=== PATIENT | female | born 1945 | race Caucasian/White ===

== ENCOUNTER 2018-03-31 08:42 | Day surgery (SDC) ==
[2018-03-31] MEDS: TETRACAINE 0.5% UNIT-DOSE OP PRN ×2 (10:00→10:20)
[2018-03-31] MEDS: BETADINE OPTH PREP OP PRN ×2 (10:00→10:20)
[2018-03-31] MEDS: CYCLOGYL 2% OPTH OP PRN ×3 (10:01→10:11)
[2018-03-31] MEDS ORDERED: DEX-MOXI-KETOR OPTH INJ 1/0.5/0.4 MG/ML IO ONE (10:08)
[2018-03-31] MEDS ORDERED: LIDOCAINE 1% 20 ML MDV ID STA (10:08)
[2018-03-31] MEDS ORDERED: BRIMONIDINE TARTRATE 0.2% OPTH SOL OP PRN (10:08)
[2018-03-31] MEDS ORDERED: BSS WITH EPINEPHRINE OP ONE (10:08)
[2018-03-31] MEDS ORDERED: LIDOCAINE 1%/PHENYLEPHRINE 1.5% BSS (SURGERY) INTRAOCULA ONE (10:08)
[2018-03-31] MEDS ORDERED: ZOFRAN 4 MG/2 ML IVP ONE (10:08)
[2018-03-31 10:15] VITALS: TEMP 97.7
[2018-03-31] MEDS ORDERED: ZOFRAN 4 MG/2 ML ONE (10:32)
[2018-03-31] MEDS ORDERED: SUBLIMAZE ONE (10:32)
[2018-03-31] MEDS ORDERED: VERSED ONE (10:32)
[2018-03-31 17:03] VITALS: BP 121/68
== END 2018-03-31 11:20 | disposition home or self-care (01) ==
LOC: SURG 08:42
PROVIDERS: ATTEND Ophthalmology
DX: H25.812 Combined forms of age-related cataract, left eye (principal)